=== PATIENT | male | born 1955 | race Caucasian/White ===

== ENCOUNTER 2016-04-13 10:46 | Observation (INO) | payer BC, OTHER ==
[2016-04-13 11:27] LABS: Hematocrit 45 % (42-52); Hemoglobin 14.7 g/dl (14.0-18.0); Mean Corpuscular HGB Conc 33 g/dl (31-36); Mean Corpuscular Hemoglobin 28 pg (27-31); Mean Corpuscular Volume 85 fL (80-94); Mean Platelet Volume 8 um3 (7.4-10.4); Red Blood Count 5.28 10^6/ul (4.0-5.4); Red Cell Distribution Width 14 % (10.5-15)
[2016-04-13 11:45] LABS: ALT 23 U/L (7-52); AST 15 U/L (13-39); Albumin 4.1 g/dL (3.2-5.2); Alkaline Phosphatase 46 U/L (34-104); Anion Gap 7 mmol/L (2-11); Blood Urea Nitrogen 17 mg/dL (6-24); CO2 Carbon Dioxide 26 mmol/L (22-32); Calcium 9.4 mg/dL (8.6-10.3); Chloride 102 mmol/L (101-111); Creatine Kinase 93 U/L (10-223); EGFR African American 117.5 (>60); EGFR Non-African American 91.3 (>60); Glucose 116 mg/dL (70-100); Magnesium 2.1 mg/dL (1.9-2.7); Sodium 135 mmol/L (133-145); Total Protein 7.1 g/dL (6.4-8.9)
--- NOTE | 2016-04-13 11:53 | RAD ---
INDICATION: Near syncopal episode. COMPARISON: None. TECHNIQUE: Dual energy PA and routine lateral views of the chest were obtained. REPORT: Clear lungs and pleural spaces. Negative for pneumothorax. The heart, pulmonary vasculature, and mediastinal contours are unremarkable. Mild thoracic degenerative spondylosis. IMPRESSION: No evidence for acute intrathoracic disease.
--- NOTE | 2016-04-13 11:53 | RAD ---
Indication: Syncope. CT of the brain was performed without IV contrast. Ventricular structures are midline. No midline shift is noted. The extra-axial spaces are unremarkable. There is no evidence of intracranial mass or hemorrhage. No other high or low density lesions are noted. Mastoid air cells and paranasal sinuses are unremarkable. impression: No intracranial mass or hemorrhage is noted.
[2016-04-13 12:15] LABS: Alcohol < 10 mg/dL (<10)
[2016-04-13 12:21] LABS: TSH (Thyroid Stimulating Horm) 3.03 mcIU/mL (0.34-5.60)
[2016-04-13] MEDS ORDERED: Ondansetron INJ* 2 MG/ML VIAL IV PRN (12:23)
[2016-04-13] MEDS ORDERED: Acetaminophen TAB* 325 MG PO PRN (12:23)
[2016-04-13] MEDS ORDERED: NS 0.9% 1000 ML* 1,000 ML IV SCH ×2 (12:30)
--- NOTE | 2016-04-13 12:35 | ED ---
Raymundo Nguyen Erika, scribed for Damian Cotter MD on 04/13/16 at 1115 . 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 Patient reports he felt fine this morning - he denies any headache , dizziness, chest pain, or SOB. 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 He notes he began to feel dizzy. Per coworkers, pt then lost consciousness for 3-4 minutes - they report he "blanked out" and was "staring blankly" but stayed sitting up. They did not note any seizure activity. Patient cannot recall these events - he states the next thing he remembers, he was surrounded by people. Per coworkers, as pt regained consciousness he complained of feeling hot, diaphoretic, and dizzy. These symptoms resolved en route by EMS. EMS reports a glucose of 130, and an EKG WNL. They gave 324 mg ASA. Currently, patient denies any symptoms, including headache, dizziness, blurred vision, chest pain, and SOB. Patient denies PMHx, and does not take medication - pt has not seen a PCP in years. FHx SC. Patient lives with his , does not smoke, and occasionally drinks. - History Of Current Complaint Chief Complaint: EDSyncope Time Seen by Provider: 04/13/16 10:58 Hx Obtained From: Patient, EMS Onset/Duration: Gradual Onset - felt dizzy beforehand, Lasting Minutes, Resolved Timing: Constant Context: Witnessed, Loss Of Consciousness Activity At Onset: At Rest - sitting down Associated Head Trauma: No Aggravating Factor(s): Nothing Alleviating Factor(s): Spontaneous Resolution Associated Signs And Symptoms: Diaphoresis, Dizzy - Allergies/Home Medications Allergies/Adverse Reactions: Allergies Allergy/AdvReac Type Severity Reaction Status Date / Time No Known Allergies Allergy Verified 04/13/16 12:18 PMH/Surg Hx/FS Hx/Imm Hx Previously Healthy: Yes Endocrine/Hematology History: Denies: Hx Diabetes Cardiovascular History: Denies: Hx Myocardial Infarction - Family History Known Family History: Positive: Cardiac Disease - SC - Social History Occupation: Employed Full-time Lives: With Family Alcohol Use: Occasionally Hx Tobacco Use: No Smoking Status (MU): Never Smoked Tobacco Review of Systems Positive: Skin Diaphoresis Negative: Blurred Vision Negative: Chest Pain Negative: Shortness Of Breath Neurological: Other - dizziness Positive: Syncope. Negative: Headache All Other Systems Reviewed And Are Negative: Yes Physical Exam - Summary Physical Exam Summary: VITAL SIGNS: Reviewed. GENERAL: Patient is a well developed and nourished female who is lying comfortable in the stretcher. Patient is not in any acute respiratory distress. HEAD AND FACE: No signs of trauma. No ecchymosis, hematomas or skull depressions. No sinus tenderness. EYES: PERRLA, EOMI x 2, No injected conjunctiva, no nystagmus. No photophobia. EARS: Hearing grossly intact. Ear canals and tympanic membranes are within normal limits. MOUTH: Oropharynx within normal limits. NECK: Supple, trachea is midline, no adenopathy, no JVD, no carotid bruit, no c- spine tenderness, neck with full ROM. No meningeal signs, no Kernig's or brudzinskis signs. CHEST: Symmetric, no tenderness at palpation LUNGS: Clear to auscultation bilaterally. No wheezing or crackles. CVS: Regular rate and rhythm, S1 and S2 present, no murmurs or gallops appreciated. ABDOMEN: Soft, non-tender. No signs of distention. No rebound no guarding, and no masses palpated. Bowel sounds are normal. EXTREMITIES: FROM in all major joints, no edema, no cyanosis or clubbing. NEURO: Alert and oriented x 3. No acute neurological deficits. Speech is normal and follows commands. NIH score 0 SKIN: Dry and warm Triage Information Reviewed: Yes Vital Signs On Initial Exam: Initial Vital Signs Temp 98.7 F 04/13/16 11:13 Pulse 82 04/13/16 11:13 Resp 20 04/13/16 11:13 BP 128/76 04/13/16 11:13 Pulse Ox 98 04/13/16 11:13 Vital Signs Reviewed: Yes Diagnostics - Laboratory Result Diagrams: 04/13/16 11:10 04/13/16 11:10 Lab Statement: Any lab studies that have been ordered have been reviewed, and results considered in the medical decision making process. - Radiology CXR Radiology Interpretation Completed By: Radiologist - IMPRESSION: No evidence for acute intrathoracic disease. - CT Brain CT CT Interpretation Completed By: Radiologist - impression: No intracranial mass or hemorrhage is noted. - EKG 11:58 Cardiac Rate: NL - at 64 bpm EKG Rhythm: Sinus Rhythm EKG Interpretation: No ST elevation Re-Evaluation - Re-Evaluation First Eval Re-Evaluation Time: 12:03 Change: Improved Comment: Discussed CT and XR results. 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 Patient reports he felt fine this morning - he denies any headache, dizziness, chest pain, or SOB. 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 He notes he began to feel dizzy. Per coworkers, pt then lost consciousness for 3-4 minutes - they report he "blanked out" and was "staring blankly" but stayed sitting up. They did not note any seizure activity. Patient cannot recall these events - he states the next thing he remembers, he was surrounded by people. Per coworkers, as pt regained consciousness he complained of feeling hot, diaphoretic, and dizzy. These symptoms resolved en route by EMS. EMS reports a glucose of 130, and an EKG WNL. They gave 324 mg ASA. Currently, patient denies any symptoms, including headache, dizziness, blurred vision, chest pain, and SOB. Patient denies PMHx, and does not take medication - pt has not seen a PCP in years. FHx SC. Patient lives with his , does not smoke, and occasionally drinks. Blood work is WNL except for glucose of 116. EtOH is <10. Head CT shows no acute intracranial pathology. CXR shows no acute disease. EKG is NSR without ST elevation. In the ED course the pt was given IV fluids and pt continues to be asymptomatic. However, because of the syncopal episode, I discussed my PE and findings with Dr. Herrera who agrees to admit the pt to his services. Patient is hemodynamically stable and A&Ox3. - Diagnoses Differential Diagnosis/HQI/PQRI: Positive: Cerebral Vascular Accident, Myocardial Infarction, Seizure, Transient Ischemic Attack, Vasovagal Episode Provider Diagnoses: Syncope - Physician Notifications Discussed Care Of Patient With: Dr. Herrera (hospitalist) at 12:03 - agrees to admit Discharge - Discharge Plan Condition: Stable Disposition: ADMITTED TO [facility] The documentation as recorded by the nahedibRaymundo hawley Erika accurately reflects the service I personally performed and the decisions made by me, Damian Cotter MD.
[2016-04-13 12:41] LABS: Ammonia 64 mol/L (16-53); B Type Natriuretic Peptide 11 pg/mL
[2016-04-13] MEDS: Heparin VIAL(*) 5000 UNITS/ML VIAL (FIVE THOUSAND) SUBCUT SCH ×2 (14:51→21:19)
--- NOTE | 2016-04-13 15:19 | HP ---
HISTORY AND PHYSICAL: DATE OF ADMISSION: 04/13/16 PRIMARY CARE PROVIDER: None. ATTENDING PHYSICIAN: Dr. Abner Herrera *(this report is being dictated by Nahid Mack NP) CHIEF COMPLAINT: 1. Staring off. 2. Syncope. HISTORY OF PRESENT ILLNESS: Mr. Castro is a 60-year-old male patient who only has a history of prostate cancer. He comes in today. 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 He sat down around 9:30, had 2 oranges, and then thereafter, he does not remember what happened, but according to his coworkers, he was staring off, he had become very diaphoretic and pale. There was no reports of shaking or incontinence. It lasted a few minutes. According to his coworkers, they shook him and he came to. He never closed his eyes according to the coworkers and he came back around, he knew where he was, he recognized his coworkers but he felt dizzy, he felt like the room was spinning, and he felt like the room was swimming before this happened. He denied having any chest pain prior to or after. There has been no shortness of breath and he was not standing or having any position change and again was sitting eating oranges when this happened. There was obvious concern by his coworkers. They called 911 and brought him to the hospital. He does not take any medications routinely and in addition to this, there has not been any recent symptoms of fevers, chills, vomiting, diarrhea, or any illnesses or again any chest pain and he states that typically he can walk up a flight of stairs and he does not have chest pain or shortness of breath with this. He was evaluated in the ER. There was concern because of the syncope versus a seizure, and the hospitalist service was asked to evaluate for admission. PAST MEDICAL HISTORY: He has a history of prostate cancer. PAST SURGICAL HISTORY: 1. He has had an appendectomy. 2. Hernia repair. 3. Prostatectomy. HOME MEDICATIONS: Denied. ALLERGIES TO MEDICATIONS: Include no known drug allergies. FAMILY HISTORY: Mother had a history of CA. Father has never had an CA, diabetes, or any cancers and essentially is healthy. SOCIAL HISTORY: He does not smoke. He does not drink. If he does, it is very rarely. Surrogate decision maker is his . 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 REVIEW OF SYSTEMS: There is no documented fever. He denied having any significant weight change. There was no double vision. There is no ear discharge. He denies having any rhinorrhea. There is no sore throat. No thyroid enlargement. Again, he denied having any chest pain. There was no orthopnea. No nocturnal dyspnea. There is no abdominal pain. There is no nausea. No vomiting. No dysuria. There was no frequency. There is question of seizures and loss of consciousness. No pruritus. No skin ulcerations. Review of 14 systems was completed, all others negative. PHYSICAL EXAMINATION GENERAL: At this time, Mr. Castro is a 60-year-old male patient. He is sitting in the ER stretcher. He does not appear to be in any acute distress. He is awake and he is alert. VITAL SIGNS: Reveal a blood pressure of 128/76 with a pulse of 82, respirations 20, O2 sat 98%, and temperature 98.7. HEENT: Head is atraumatic and normocephalic. Eyes; EOMs are intact. Sclerae anicteric and not pale. Throat: Oral mucosa appears moist. No oropharyngeal erythema. NECK: Supple. LUNGS: Clear to auscultation bilaterally. No wheezes, rales, or rhonchi. HEART: Heart sounds S1 and S2. Regular rate and rhythm. No murmurs, rubs, or gallops. ABDOMEN: Soft. It was flat and nontender. Bowel sounds are present. EXTREMITIES: Pulses are 2+ throughout. He is able to move all 4 extremities; 5 /5 strength. SKIN: Intact. NEUROLOGIC: The patient is awake. He is alert. He is oriented x3. His tongue is midline. 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 He had no gross focal deficits. LABORATORY DATA: His labs today revealed a WBC of 7.0, RBC of 5.28, hemoglobin of 14.7, hematocrit of 45, platelet count of 233. Sodium was 135, potassium 4.0, chloride 102, bicarb 26, BUN 17, creatinine 0.85, glucose 116, lactic 1.1, mag 2.1, calcium 9.4, total bili 0.6, AST 15, ALT 23, alk phos 43, troponin 0, TSH 3.03, albumin 4.1. Toxicology is negative. He had a brain CT obtained today, which showed no intracranial mass or hemorrhages noted. He had a chest x-ray today as well, which showed no acute intrathoracic disease. EKG today shows a normal sinus rhythm with a rate of 64. No ST elevations or T-wave inversions were noted. Old medical records were limited, were reviewed. ASSESSMENT AND PLAN: Mr. Castro is a 60-year-old male patient coming into the ER today with complaints of a syncopal versus seizure episode and staring spell at work, he will be admitted under observation status for: 1. Syncope versus seizure. At this point, again the staring spell does make me question if he had a seizure, so I think we are warranted to do an EEG. Depending on the results of this, we may consider Neurology consult. We will get an echo. In addition to this, we will get orthostatic blood pressures, place the patient on telemetry, and I will cycle his troponins. We will continue to follow. I am also going to check an A1c to make sure he is not diabetic and maybe he had a hypoglycemic episode and will continue to follow. 2. Prostate cancer. We are going to get him established with a primary, he can follow. 3. Fluid, electrolytes, nutrition. He can be on a regular diet. 4. Code status. Full code. TIME SPENT: Time spent on this admission was 60 minutes, of which greater than half the time was spent [id number] with the patient obtaining my history and physical; other half the time was spent going over the plan of care with the patient and implementing the plan of care. I discussed the plan of care with my attending, Dr. Herrera, he is in [place] [id number]/[facility] #: [id number] [place]
[2016-04-13 18:13] LABS: Urine Bilirubin Negative (Negative); Urine Glucose Negative (Negative); Urine Nitrite Negative (Negative)
[2016-04-14 05:22] LABS: Hematocrit 43 % (42-52); Mean Corpuscular HGB Conc 33 g/dl (31-36); Mean Corpuscular Hemoglobin 28 pg (27-31); Mean Corpuscular Volume 86 fL (80-94); Mean Platelet Volume 8 um3 (7.4-10.4); Red Blood Count 4.99 10^6/ul (4.0-5.4); Red Cell Distribution Width 14 % (10.5-15); White Blood Count 7.7 10^3/ul (3.5-10.8)
[2016-04-14 05:44] LABS: BUN/Creatinine Ratio 17.6 (8-20); EGFR African American 108.6 (>60); EGFR Non-African American 84.4 (>60); HDL Cholesterol 37.8 mg/dL; Potassium 4.2 mmol/L (3.5-5.0)
[2016-04-14] MEDS: Heparin VIAL(*) 5000 UNITS/ML VIAL (FIVE THOUSAND) SUBCUT SCH ×2 (05:51→13:59)
--- NOTE | 2016-04-14 11:51 | EEG ---
ELECTROENCEPHALOGRAPHY: DATE OF STUDY: 04/13/16 LOCATION: Inpatient. ORDERING PROVIDER: Clarke Mendoza NP. CLINICAL PROBLEM: This is a 60-year-old man who while at work today, began to feel dizzy while seated at a table. The next thing he remembers is his coworkers asking him if he was okay. They stated his eyes were open, but he was not responding and it lasted 3 to 4 minutes. He has no memory of this event. After he came to, he felt dizzy and a bit of a cold sweat. He was not confused and he knew where he was. EEG is requested to evaluate for epileptiform abnormalities. MEDICATIONS: 1. Heparin. 2. Tylenol. 3. Zofran. No home medications. REPORT: The waking background showed appropriate organization with clearly defined anterior to posterior voltage and frequency gradients. There was a well -defined posterior dominant rhythm of 9 Hz, which was symmetrical and showed normal reactivity. Anteriorly, there was an expected pattern of lower voltage, irregular, and mixed faster frequencies. Throughout the recording, there were no epileptiform discharges, focal features , paroxysmal features or significant interhemispheric asymmetries. CLINICAL IMPRESSION: This is a normal waking EEG. There are no epileptiform abnormalities. CC: [place] [id number]/[facility] #: [id number] [facility]
--- NOTE | 2016-04-14 11:51 | ECHO ---
Patient: RIMA BAH [facility] Rec#: [id number] : 1955 Date: 04/14/2016 Age: 60y Height: 180.34 cm / 71.0 in Weight: 106.59 kg / 234.9 lbs Sex: M BSA: 2.26 Room#: [facility] Admit Date#: 04/13/2016 Type: Inpatient Referring: Clarke Mendoza NP Reading: Ajay Lancaster MD [employer] Setter: Marck Zimmerman RDCS Transthoracic Echocardiogram Indication: SYNCOPE BP: 122/79 HR: 67 Rhythm: NSR Findings History: Prostate cancer Technical Comments: The study quality is fair. Completed 1040 Left Ventricle: The left ventricular chamber size is normal. Global left ventricular wall motion and contractility are within normal limits. There is normal left ventricular systolic function. The estimated ejection fraction is 55-60%. Abnormal left ventricular diastolic filling is observed, consistent with impaired relaxation. Left Atrium: The left atrial chamber size is normal. Right Ventricle: The right ventricular cavity size is normal. The right ventricular global systolic function is normal. Right Atrium: The right atrial cavity size is normal. Aortic Valve: The aortic valve is trileaflet. There is no evidence of aortic regurgitation. There is no evidence of aortic stenosis. Mitral Valve: The mitral valve leaflets appear normal. There is no evidence of mitral regurgitation. There is no evidence of mitral stenosis. Tricuspid Valve: There is no evidence of tricuspid valve regurgitation. Pulmonic Valve: The pulmonic valve structure is not well visualized. Pericardium: There is no pericardial effusion. Aorta: There is no dilatation of the ascending aorta. There is no dilatation of the aortic arch. There is no dilation of the aortic root. Pulmonary Artery: The main pulmonary artery is not well visualized. Venous: The venous system is not well visualized. The inferior vena cava is not visualized. Conclusions Global left ventricular wall motion and contractility are within normal limits. There is normal left ventricular systolic function. The estimated ejection fraction is 55-60%. The right ventricular global systolic function is normal. There is no evidence of aortic regurgitation. There is no evidence of mitral regurgitation. There is no evidence of tricuspid valve regurgitation. There is no pericardial effusion. Measurements Name Value Normal Range RVIDd (AP) 2D 2.6 cm (0.9 - 2.6) RVDdMajor (2D) 1.7 cm (2.2 - 4.4) RAd ISD 4CH 5.4 cm (3.4 - 4.9) RA (A4C)W 2.3 cm (2.9 - 4.6) IVSd (2D) 0.9 cm (0.6 - 1) LVPWd (2D) 0.7 cm (0.6 - 1) LVIDd (2D) 5.3 cm (3.6 - 5.4) LVIDs (2D) 2.8 cm - LV FS (2D) 46 % (25 - 45) Aortic Annulus 1.9 cm (1.4 - 2.6) Ao root diameter (2D) 3.2 cm (2.1 - 3.5) Ascending Ao 2.9 cm (2.1 - 3.4) Aortic arch 2.1 cm (1.8 - 3.4) LA dimension (AP) 2D 3.6 cm (2.3 - 3.8) LAd ISD 4CH 5.4 cm (2.9 - 5.3) LA ISD 4CH W 2 cm (2.5 - 4.5) Name Value Normal Range LA ESV SP 4CH (A/L) 19 ml - LA ESV SP 2CH (A/L) 30 ml - LA ESV BP (A/L) 25 ml - LA ESV BP (A/L) index 11.19 ml/m2 - LA ESV SP 4CH (MOD) 17 ml - LA ESV SP 2CH (MOD) 30 ml - Name Value Normal Range MV E-wave Vmax 0.58 m/sec - MV deceleration time 147 msec - MV A-wave Vmax 0.79 m/sec - MV E:A ratio 0.73 ratio - LV septal e' Vmax 0.08 m/sec - LV lateral e' Vmax 0.08 m/sec - LV E:e' septal ratio 7.2 ratio - LV E:e' lateral ratio 7.2 ratio - Name Value Normal Range LVOT diameter 2.4 cm - LVOT Vmax 0.6 m/sec - Name Value Normal Range IVC diameter 1.19 cm -
[2016-04-14 13:09] VITALS: BP 140/85
--- NOTE | 2016-04-14 14:58 | RAD ---
INDICATION: Possible cirrhosis COMPARISON: None TECHNIQUE: Longitudinal and transverse scans of the liver were obtained. Doppler interrogation of the hepatic and portal venous system was performed. FINDINGS: Liver: There is hepatic steatosis with focal sparing near the gallbladder fossa. There are no masses . The liver measures 15.9 cm in cephalocaudal dimension. Vessels: There is normal hepatic and portal venous flow. Bile ducts: There is no evidence of intrahepatic or extrahepatic ductal dilatation. The common duct measures 0.3 cm. Gallbladder: Cholelithiasis. There is no thickening gallbladder wall or pericholecystic fluid. The patient was not tender over the gallbladder. Pancreas: Not visualized due to bowel gas Right kidney: The right kidney is normal in size and echogenicity. There are no masses or calculi. There is no evidence of hydronephrosis. The right kidney measures 11.9 x 5.6 x 6.9 cm. IVC and aorta: The aorta and superior vena cava appear normal. Fluid: There is no ascites. Other: None. IMPRESSION: HEPATIC STEATOSIS. NO SONOGRAPHIC FINDINGS SPECIFIC FOR CIRRHOSIS . CHOLELITHIASIS.
--- NOTE | 2016-04-15 08:01 | DS ---
DISCHARGE SUMMARY: DATE OF : 51. PRIMARY CARE PROVIDER: Cristobal Briscoe MD. DATE OF ADMISSION: 04/13/16 DATE OF DISCHARGE: 04/15/15 PRIMARY DIAGNOSIS: Include syncope. SECONDARY DIAGNOSES: Include 1. Metabolic syndrome, hemoglobin A1c 6.0, hyperlipidemia. 2. Elevated ammonia. MEDICATIONS ON DISCHARGE: Include none. DIET ON DISCHARGE: Consistent carbohydrate. HISTORY OF PRESENT ILLNESS AND HOSPITAL COURSE: This is a 60-year-old man with no significant known past medical history, not well known to medical providers, last seen by a PCP six years prior, who has been in his usual state of health. He was at work, eating lunch with a colleague when he started to feel dizzy, then "more dizzy" until he lost consciousness, slumped to his left, woke up approximately 1 minute later without any confusion or associated signs and symptoms other than preceding lightheadedness. EMS was activated. He presented to the emergency room. The patient was admitted to telemetry, underwent an EEG which was interpreted as a normal waking EEG without epileptiform abnormalities. Additionally, he had a transthoracic echocardiogram performed with no valvular abnormalities, LVEF of 55% to 60%, normal left ventricular wall motion and contractility. He was noted to have an elevated ammonia, 64, of unknown significance. For this reason, ultrasound of the liver was obtained. Results are still pending. Other pertinent labs include total cholesterol of 183, an LDL of 118, and HDL of 38. His TSH was 3.0. His hemoglobin A1c was 6.0. At this point, 24-hour telemetry monitoring did not indicate any abnormal arrhythmias, remained in normal sinus rhythm during the course of his hospital stay. At this point, no etiology for his sudden loss of consciousness has been elucidated. His presentation, loss of consciousness while sitting for approximately 1 minute without any antecedent or resultant confusion is significantly concerning for an arrhythmia; however, he had a normal transthoracic echocardiogram, two troponins that are 0.00, and normal telemetry. Some consideration for an outpatient stress test can be considered at the time of his followup appointment with this author. AT FOLLOWUP, PLEASE: 1. Continue to follow prediabetes, hemoglobin A1c 6.0. 2. Followup blood pressure. 3. Follow cholesterol. 4. Consider outpatient stress test. 5. Follow ultrasound of his liver to evaluate for cirrhosis; no significant history of drinking. 6. No other specific labs or vitals that need followup. Reasons to return to the hospital include but are not limited to recurrent worsening symptoms including loss of consciousness or any other loss of consciousness, lightheadedness, chest pain, shortness of breath, nausea, vomiting, loss of consciousness. Discussed with the patient and his . They acknowledge understanding. Greater than 60 minutes were spent on discharging the patient, greater than half was face to face with patient. [id number]/[facility] #: [id number] [facility]
== END 2016-04-14 14:55 | disposition home or self-care (01) ==
LOC: ED 10:46 → MEDTELE 12:03
PROVIDERS: ADMIT Internal Medicine; ATTEND Internal Medicine
DX: R41.82 Altered mental status, unspecified (principal); R55 Syncope and collapse; Z85.46 Personal history of malignant neoplasm of prostate; K76.0 Fatty (change of) liver, not elsewhere classified; R42 Dizziness and giddiness; R61 Generalized hyperhidrosis
CPT/HCPCS: 36415; 70450; 71020; 76705; 80048; 80053; 80061; 80320; 81003; 82140; 82550; 83036; 83605; 83735; 83880; 84443; 84484; 85025; 85610; 93005; 93306; 95816; 96360; 96361; 96372; 99284; G0378; G0480; J1644

== ENCOUNTER 2017-04-26 07:16 | Emergency (ER) | payer OTHER ==
[2017-04-26] MEDS ORDERED: Ketorolac INJ* 60 MG/2 ML VIAL IM ONE (08:35)
--- NOTE | 2017-04-26 08:56 | UC ---
Complaint Male HPI - HPI Summary HPI Summary: 61 yo Wm c/o right lower back pain radiating to right flank and right groin x since 230 this AM, denies f/c - History of Current Complaint Chief Complaint: UCGU Stated Complaint: LOWER BACK PAIN Time Seen by Provider: 04/26/17 07:45 Hx Obtained From: Patient Onset/Duration: Sudden Onset Timing: Intermittent Severity Currently: Moderate Pain Intensity: 7 - Allergies/Home Medications Allergies/Adverse Reactions: Allergies Allergy/AdvReac Type Severity Reaction Status Date / Time No Known Allergies Allergy Verified 04/26/17 07:29 PMH/Surg Hx/FS Hx/Imm Hx Previously Healthy: Yes - Surgical History Surgical History: Yes Surgery Procedure, Year, and Place: hernia repair- 1998. appendectomy- 1973. prostatectomy- 2010 - Family History Known Family History: Positive: Cardiac Disease - [place] - Social History Alcohol Use: Occasionally Substance Use Type: None Smoking Status (MU): Never Smoked Tobacco - Immunization History Most Recent Tetanus Shot: unknown Review of Systems Skin: Negative Eyes: Negative ENT: Negative Respiratory: Negative Cardiovascular: Negative Gastrointestinal: Negative Genitourinary: Other - right LBP, right flank and LBP Motor: Negative Neurovascular: Negative Musculoskeletal: Negative Neurological: Negative Psychological: Negative All Other Systems Reviewed And Are Negative: Yes Physical Exam Triage Information Reviewed: Yes Appearance: No Pain Distress Vital Signs: Initial Vital Signs Temp 36.3 C 04/26/17 07:24 Pulse 59 04/26/17 07:24 Resp 20 04/26/17 07:24 BP 160/97 04/26/17 07:24 Pulse Ox 99 04/26/17 07:24 Eye Exam: Normal ENT Exam: Normal Dental Exam: Normal Neck exam: Normal Neck: Positive: 1 Respiratory Exam: Normal Cardiovascular Exam: Normal Abdomen Description: Positive: Soft, Other: - mild tenderness in right lower back, right flank and groin- intermittent. Negative: CVA Tenderness (R) Musculoskeletal Exam: Normal Neurological Exam: Normal Psychological Exam: Normal Skin Exam: Normal Complaint Male Course/Dx - Course Course Of Treatment: renal US was ordered but had to wait quite a bit due to not enough PO intake to visualized bladder so had to wait until bladder was full. Renal US- no hydro or renal calculi noted. UA showed 3+ blood which may have been related to passing stone,. Pain considerably improved with IM Toradol Advised continued hydration and pain control with NSAIDS at home. - Differential Dx/Diagnosis Provider Diagnoses: renal colic Discharge - Discharge Plan Condition: Stable Disposition: HOME Prescriptions: Naproxen 500 mg PO BID 10 Days #20 tablet Patient Education Materials: Renal Colic (ED) Referrals: No Primary Care Phys,NOPCP [Primary Care Provider] - Additional Instructions: Plenty of hydration, take Naproxen for pain control If pain worsens go to ER or follow up with a urologist
[2017-04-26 11:11] VITALS: BP 153/87
--- NOTE | 2017-04-26 12:12 | RAD ---
Indication: Renal colic. Real-time sonography of the kidneys was performed. Previous ultrasound dated April 14, 2016 was reviewed. The right kidney measures 12.1 x 7.8 x 5.8 cm. Fullness of the right renal collecting system is noted however no shadi hydronephrosis is noted. The left kidney measures 11.5 x 6.6 x 5.7 cm. Vascular calcifications are noted. The urinary bladder demonstrates a post void residual of 5 mL. No bladder wall masses are noted. Bilateral ureteral jets are noted. The prostate has been removed. IMPRESSION: Fullness of the right renal collecting system without shadi hydronephrosis is noted in the right kidney. No evidence of post void residual is noted.
== END 2017-04-26 12:47 | disposition home or self-care (01) ==
LOC: UCEAST 07:16
DX: N23 Unspecified renal colic (principal)
CPT/HCPCS: 76770; 81003; 99212; G0463; J1885

== ENCOUNTER 2021-04-14 14:40 | Observation (INO) ==
[2021-04-14 15:30] LABS: ABS Eosinophils 0.1 10^3/ul (0-0.6); ABS Lymphocytes 1.5 10^3/ul (1.0-4.8); ABS Monocytes 0.5 10^3/ul (0-0.8); ABS Neutrophils 3.6 10^3/ul (1.5-7.7); Eosinophil % 2.1 %; Hematocrit 47 % (42-52); Hemoglobin 15.8 g/dL (14.0-18.0); Lymphocyte % 25.9 %; Mean Corpuscular HGB Conc 34 g/dL (31-36); Mean Corpuscular Hemoglobin 29 pg (27-31); Mean Corpuscular Volume 85 fL (80-94); Mean Platelet Volume 7.2 fL (7.4-10.4); Nucleated Red Blood Cells % 0.1; Platelet Count 234 10^3/uL (150-450); Red Blood Count 5.54 10^6 /uL (4.18-5.48); Red Cell Distribution Width 14 % (10-15); White Blood Count 5.8 10^3/uL (3.5-10.8)
[2021-04-14 15:35] LABS: INR 1.1 (0.86-1.15)
[2021-04-14 15:50] LABS: Troponin I 0.05 ng/mL (<0.03)
[2021-04-14 16:24] LABS: ALT 28 U/L (7-52); AST 19 U/L (13-39); Albumin 4.2 g/dL (3.2-5.2); Albumin/Globulin Ratio 1.6 (1-3); Alkaline Phosphatase 50 U/L (35-149); Anion Gap 9 mmol/L (2-11); Blood Urea Nitrogen 18 mg/dL (6-24); CO2 Carbon Dioxide 25 mmol/L (22-32); Calcium 9.1 mg/dL (8.6-10.3); Chloride 105 mmol/L (101-111); Globulin 2.7 g/dL (2-4); Glucose 95 mg/dL (70-100); Potassium 4.4 mmol/L (3.5-5.0); Sodium 139 mmol/L (135-145); Total Protein 6.9 g/dL (6.4-8.9); eGFR CKD-EPI 58.1 (>60)
[2021-04-14] MEDS ORDERED: Lactated Ringers 1000 ml BAG 1,000 ML IV ONE (16:49)
[2021-04-14 18:28] LABS: Troponin I 0.08 ng/mL (<0.03)
[2021-04-14] MEDS ORDERED: Iodixanol (CONTRAST) 320 MG/ML 100 ML SDV IV ONE (18:28)
[2021-04-14] MEDS ORDERED: Heparin DRIP 25,000 UNITS BAG 25,000 UNITS/500 ML BAG IV SCH (21:00)
[2021-04-14 21:14] LABS: Activated Partial Thrombo Time 35.2 seconds (26.0-38.0); INR 1.12 (0.86-1.15)
[2021-04-14 21:25] LABS: Troponin I 0.12 ng/mL (<0.03)
[2021-04-14] MEDS: Heparin 5000 UNITS/ML 1 mL VIAL IV SCH (22:17)
[2021-04-15 00:04] LABS: Urine Appearance Clear; Urine Bilirubin Negative (Negative); Urine Blood 1+ (Negative); Urine Color Straw; Urine Glucose Negative (Negative); Urine Ketones Negative (Negative); Urine Nitrite Negative (Negative); Urine Protein Negative (Negative); Urine Specific Gravity 1.016 (1.002-1.030); Urine Urobilinogen Negative (Negative)
[2021-04-15 00:05] LABS: Urine Bacteria Absent (Absent); Urine Red Blood Cell Trace(0-2/hpf) (Absent); Urine White Blood Cell Absent (Absent)
[2021-04-15 01:42] LABS: Troponin I 0.11 ng/mL (<0.03)
[2021-04-15 03:20] LABS: ABS Eosinophils 0.2 10^3/ul (0-0.6); ABS Lymphocytes 1.7 10^3/ul (1.0-4.8); ABS Monocytes 0.5 10^3/ul (0-0.8); ABS Neutrophils 4.2 10^3/ul (1.5-7.7); Eosinophil % 2.3 %; Hematocrit 44 % (42-52); Hemoglobin 14.6 g/dL (14.0-18.0); Lymphocyte % 26.1 %; Mean Corpuscular HGB Conc 33 g/dL (31-36); Mean Corpuscular Hemoglobin 28 pg (27-31); Mean Corpuscular Volume 85 fL (80-94); Mean Platelet Volume 7.2 fL (7.4-10.4); Nucleated Red Blood Cells % 0.1; Platelet Count 212 10^3/uL (150-450); Red Blood Count 5.14 10^6 /uL (4.18-5.48); Red Cell Distribution Width 13 % (10-15); White Blood Count 6.6 10^3/uL (3.5-10.8)
[2021-04-15 04:14] LABS: Anion Gap 8 mmol/L (2-11); Blood Urea Nitrogen 15 mg/dL (6-24); CO2 Carbon Dioxide 22 mmol/L (22-32); Calcium 8.8 mg/dL (8.6-10.3); Chloride 105 mmol/L (101-111); Cholesterol 188 mg/dL; Glucose 98 mg/dL (70-100); HDL Cholesterol 40.6 mg/dL; LDL Cholesterol 114 mg/dL; Potassium 3.9 mmol/L (3.5-5.0); Sodium 135 mmol/L (135-145); Triglycerides 165 mg/dL; eGFR CKD-EPI 91.2 (>60)
[2021-04-15 04:21] LABS: Troponin I 0.09 ng/mL (<0.03)
[2021-04-15] MEDS ORDERED: Aspirin EC 81 mg TAB.EC (enteric coated) PO SCH (09:00)
[2021-04-15] MEDS: Heparin 5000 UNITS/ML 1 mL VIAL IV SCH (11:14)
[2021-04-15] MEDS ORDERED: NS 0.9% 1000 ml BAG 1,000 ML IV SCH (13:00)
[2021-04-15] MEDS ORDERED: Heparin 2 UNITS/ML 1000 mls 2,000 ML IV ONE (13:29)
[2021-04-15] MEDS ORDERED: Iohexol 350 (CONTRAST) 200 ML MDV IV ONE (13:29)
[2021-04-15] MEDS ORDERED: fentaNYL 100 mcg/2 ml 50 MCG/ML VIAL ONE (13:29)
[2021-04-15] MEDS ORDERED: Lidocaine 1% VIAL 10 MG/ML VIAL ONE (13:29)
[2021-04-15] MEDS ORDERED: VERAPAMIL 2.5 MG/ML 2 ML VIAL ** 5 mg/2 ml ONE (13:29)
[2021-04-15] MEDS ORDERED: Heparin 1,000 UNIT/ML 10 ml (10,000 UNITS) CATHLAB/DIALYSIS ONE (13:29)
[2021-04-15] MEDS ORDERED: Midazolam 5 mg/5 ml VIAL 1 mg/ml 5 ml VIAL (5 mg) ONE (13:29)
[2021-04-15] MEDS ORDERED: nitroGLYCERIN DRIP (PHA MIX) 25,000 MCG/250 ML BAG ONE (14:03)
[2021-04-15 16:25] VITALS: BP 135/83
== END 2021-04-15 16:00 | disposition home or self-care (01) ==
LOC: EDHOLD 14:40 → ED 14:40 → SUATTDRO 20:28 → MEDTELE 04-15 02:00
PROVIDERS: ADMIT Student in an Organized Health Care Education/Training Program; ATTEND Internal Medicine